=== PATIENT | female | born 1965 | race Caucasian/White ===

== ENCOUNTER 2017-10-25 15:15 | Emergency (ER) | payer BC ==
[~2017-10-25] VITALS: Ht 170.2 cm; Wt 113.4 kg
[~2017-10-25 15:15] MED LIST: ALPR.25 PO; BUPR150ERA PO; Budeprion Xl300 MG; CLON1; DOCU100 PO; Dicyclomine HCl10 MG PO; ESTR2 PO; LAMO25; LEVSOD50 PO; LIOT5; LISI5; Lamictal150 MG PO; Mobic7.5 MG PO; NORT25 PO; Norco 5-325 Ta1 EACH PO; Omeprazole20 M1 PO; Prinivil10 MG PO; QUET300 PO; Seroquel Xr400 MG; VICODIN 5-3001 EACH PO; Venlafaxine HC225 MG PO; ZOLP10 PO; Zofran Odt4 MG SL
[2017-10-25 15:37] LABS: BASOPHILS ABSOLUTE AUTO 0.12 K/mm3 (0.00-0.23); BASOPHILS PERCENT AUTO 2 % (0-2); EOSINOPHILS ABSOLUTE AUTO 0.25 K/mm3 (0.00-0.68); EOSINOPHILS PERCENT AUTO 3 % (0-6); Hematocrit 39.6 % (33.0-51.0); Hemoglobin 11.8 g/dL (11.5-16.0); IMMATURE GRAN ABSOLUTE AUTO 0.03 K/mm3 (0.00-0.10); IMMATURE GRAN PERCENT AUTO 0 % (0-1); LYMPHOCYTES ABSOLUTE AUTO 2.52 K/mm3 (0.84-5.20); LYMPHOCYTES PERCENT AUTO 31 % (21-46); MONOCYTES ABSOLUTE AUTO 0.54 K/mm3 (0.16-1.47); MONOCYTES PERCENT AUTO 7 % (4-13); Mean Corpuscular HGB 24.1 pg (26.0-34.0); Mean Corpuscular HGB Conc 29.8 g/dL (31.5-36.5); Mean Corpuscular Volume 81 fL (80-100); Mean Platelet Volume 8.7 fL (9.1-12.4); NEUTROPHILS ABSOLUTE AUTO 4.74 K/mm3 (1.96-9.15); NEUTROPHILS PERCENT AUTO 58 % (41-73); Platelet Count 396 K/mm3 (150-400); RDW Coefficient Variation 16.9 % (11.7-14.2); RDW Standard Deviation 49.9 fL (35.1-46.3); Red Blood Cell Count 4.89 M/mm3 (3.80-5.20)
[2017-10-25] MEDS ORDERED: PREG50 PO (16:15)
[2017-10-25] MEDS ORDERED: LEVSOD50 PO (16:15)
[2017-10-25] MEDS ORDERED: Venlafaxine HC225 MG PO (16:16)
[2017-10-25] MEDS ORDERED: ZOLP10 PO (16:16)
[2017-10-25] MEDS ORDERED: LOSA50 PO (16:17)
[2017-10-25] MEDS ORDERED: Lamictal150 MG PO (16:17)
[2017-10-25] MEDS ORDERED: QUET300 PO (16:17)
[2017-10-25] MEDS ORDERED: LORA.5 PO (16:18)
[2017-10-25 20:02] LABS: Alanine Aminotransfer (ALT/SGP 20 U/L (12-78); Albumin, Blood 3.4 g/dL (3.4-5.0); Albumin/Globulin Ratio 1.2 (0.8-1.8); Alk Phos 130 U/L (50-136); Anion Gap 8 mmol/L (6-16); Aspartate Aminotrans (AST/SGOT 18 U/L (12-37); Bilirubin, Total 0.3 mg/dL (0.1-1.0); Blood Urea Nitrogen 16 mg/dL (8-24); Bun/Creatinine Ratio 17.4 (12.0-20.0); CO2, Blood 26 mmol/L (21-32); Calcium, Blood 8.8 mg/dL (8.5-10.1); Chloride, Blood 107 mmol/L (98-108); Creatinine, Blood 0.92 mg/dL (0.40-1.00); Globulin, Blood 2.8 g/dL (2.2-4.0); Glomerular Filtration Rate >60 (60-); Glucose, Blood 85 mg/dL (70-99); Potassium, Blood 4.3 mmol/L (3.5-5.5); Sodium, Blood 141 mmol/L (136-145); Total Protein, Blood 6.2 g/dL (6.4-8.2)
[2017-11-04] MEDS ORDERED: LIOT5 PO (11:48)
[2017-11-04] MEDS ORDERED: SAXENDA3 MG/0.5 M (11:49)
[2017-11-04] MEDS ORDERED: Zanaflex4 M1 (11:49)
== END 2017-10-25 20:39 | disposition home or self-care (01) ==
LOC: ER 15:15
PROVIDERS: Internal Medicine
DX: T50.991A Poisoning by other drugs, medicaments and biological substances, accidental (unintentional), initial encounter (principal); R10.9 Unspecified abdominal pain; I10 Essential (primary) hypertension; E03.9 Hypothyroidism, unspecified; F41.8 Other specified anxiety disorders; Z79.899 Other long term (current) drug therapy
CPT/HCPCS: 36415; 80053; 83690; 85025; 96361; 96374; 96375; 99284; J1885; J2405; J2550; J7030

== ENCOUNTER 2018-01-06 08:50 | Day surgery (SDC) | payer BC ==
[~2018-01-06] VITALS: Ht 162.6 cm; Wt 105.0 kg
[~2018-01-06 08:50] MED LIST changes: +LORA.5 PO; +LOSA50 PO; +PREG50 PO; +SAXENDA3 MG/0.5 M; +Zanaflex4 M1
== END 2018-01-06 12:02 | disposition home or self-care (01) ==
LOC: ORSCSDS 08:50
PROVIDERS: Orthopaedic Surgery
PROC: 01N54ZZ Release Median Nerve, Percutaneous Endoscopic Approach (ICD-10-PCS; principal; 2018-01-06 10:30)
DX: G56.02 Carpal tunnel syndrome, left upper limb (principal); I10 Essential (primary) hypertension; G47.33 Obstructive sleep apnea (adult) (pediatric); E66.01 Morbid (severe) obesity due to excess calories; Z68.39 Body mass index [BMI] 39.0-39.9, adult; F33.9 Major depressive disorder, recurrent, unspecified; Z79.899 Other long term (current) drug therapy
CPT/HCPCS: J0171; J0690; J2250; J3010; J7120

== ENCOUNTER → 2018-02-21 | Outpatient (CLI) | payer BC | END | disposition home or self-care (01) | LOC: LAB SHORT 17:17 → LAB 17:17 | PROVIDERS: Nurse Practitioner Women's Health | DX: Z12.72 Encounter for screening for malignant neoplasm of vagina (principal); Z91.89 Other specified personal risk factors, not elsewhere classified | CPT/HCPCS: 87624; G0123 ==

== ENCOUNTER 2018-03-12 17:58 | Emergency (ER) | payer BC ==
[~2018-03-12] VITALS: Ht 162.6 cm; Wt 103.0 kg
[~2018-03-12 17:58] MED LIST changes: +LIOT5 PO
[2018-03-12 18:31] LABS: BASOPHILS ABSOLUTE AUTO 0.13 K/mm3 (0.00-0.23); BASOPHILS PERCENT AUTO 1 % (0-2); EOSINOPHILS ABSOLUTE AUTO 0.18 K/mm3 (0.00-0.68); EOSINOPHILS PERCENT AUTO 2 % (0-6); Hematocrit 38.6 % (33.0-51.0); IMMATURE GRAN ABSOLUTE AUTO 0.04 K/mm3 (0.00-0.10); IMMATURE GRAN PERCENT AUTO 0 % (0-1); LYMPHOCYTES ABSOLUTE AUTO 3.17 K/mm3 (0.84-5.20); LYMPHOCYTES PERCENT AUTO 33 % (21-46); MONOCYTES ABSOLUTE AUTO 0.64 K/mm3 (0.16-1.47); MONOCYTES PERCENT AUTO 7 % (4-13); Mean Corpuscular HGB 26.3 pg (26.0-34.0); Mean Corpuscular HGB Conc 31.1 g/dL (31.5-36.5); Mean Corpuscular Volume 85 fL (80-100); Mean Platelet Volume 8.5 fL (9.1-12.4); NEUTROPHILS ABSOLUTE AUTO 5.43 K/mm3 (1.96-9.15); NEUTROPHILS PERCENT AUTO 57 % (41-73); Platelet Count 379 K/mm3 (150-400); RDW Coefficient Variation 15.9 % (11.7-14.2); RDW Standard Deviation 48.3 fL (35.1-46.3); Red Blood Cell Count 4.57 M/mm3 (3.80-5.20); White Blood Cell Count 9.59 K/mm3 (4.00-11.30)
[2018-03-12] MEDS ORDERED: PREG50 PO (18:37)
[2018-03-12] MEDS ORDERED: GABA100 PO (18:39)
[2018-03-12] MEDS ORDERED: ESTRADIOL1 EACH TD (18:40)
[2018-03-12 18:46] LABS: Anion Gap 10 mmol/L (6-16); Blood Urea Nitrogen 9 mg/dL (8-24); Bun/Creatinine Ratio 9.5 (12.0-20.0); CO2, Blood 27 mmol/L (21-32); Calcium, Blood 8.6 mg/dL (8.5-10.1); Chloride, Blood 108 mmol/L (98-108); Creatinine, Blood 0.94 mg/dL (0.40-1.00); Glomerular Filtration Rate >60 (60-); Glucose, Blood 131 mg/dL (70-99); Potassium, Blood 3.5 mmol/L (3.5-5.5); Sodium, Blood 145 mmol/L (136-145)
== END 2018-03-12 19:30 | disposition home or self-care (01) ==
LOC: ER 17:58
PROVIDERS: Emergency Medicine
DX: R11.2 Nausea with vomiting, unspecified (principal); R19.7 Diarrhea, unspecified; R23.3 Spontaneous ecchymoses; I10 Essential (primary) hypertension; E03.9 Hypothyroidism, unspecified; F41.9 Anxiety disorder, unspecified; F32.9 Major depressive disorder, single episode, unspecified; Z79.899 Other long term (current) drug therapy
CPT/HCPCS: 36415; 80048; 85025; 96361; 96374; 96375; 99283-25; J0780; J1200; J7030

== ENCOUNTER 2018-12-01 20:32 | Emergency (ER) | payer BC ==
[~2018-12-01] VITALS: Ht 162.6 cm; Wt 103.4 kg
[~2018-12-01 20:32] MED LIST changes: +ESTRADIOL1 EACH TD; +GABA100 PO
[2018-12-01] MEDS ORDERED: Cheratussin AC118 ML PO (22:15)
[2018-12-01] MEDS ORDERED: Prednisone20 MG PO (22:15)
[2018-12-04] MEDS ORDERED: BENZ100A PO (21:26)
== END 2018-12-01 22:25 | disposition home or self-care (01) ==
LOC: ER 20:32
DX: J40 Bronchitis, not specified as acute or chronic (principal); I10 Essential (primary) hypertension; E03.9 Hypothyroidism, unspecified; F31.9 Bipolar disorder, unspecified; F41.9 Anxiety disorder, unspecified; Z79.899 Other long term (current) drug therapy
CPT/HCPCS: 71046; 99283-25; J7512

== ENCOUNTER 2018-12-29 07:37 | Day surgery (SDC) | payer BC ==
[~2018-12-29] VITALS: Ht 162.6 cm; Wt 102.5 kg
[~2018-12-29 07:37] MED LIST changes: +BENZ100A PO; +COMPAZINE10 MG PO; +Cheratussin AC118 ML PO; +Esgic Tablet1 EACH PO; +LORA1 PO; +METCAR500 PO; +NARCAN4 MG; +Norco 10-325 T1 EACH PO; +PROGESTERONE100 MG PO; +Prednisone20 MG PO; +TIZANIDINE HCL4 MG PO
== END 2018-12-29 10:58 | disposition home or self-care (01) ==
LOC: ORSCSDS 07:37
PROVIDERS: Orthopaedic Surgery
PROC: 0SBC4ZZ Excision of Right Knee Joint, Percutaneous Endoscopic Approach (ICD-10-PCS; principal; 2018-12-29 08:45)
DX: M23.221 Derangement of posterior horn of medial meniscus due to old tear or injury, right knee (principal); M23.251 Derangement of posterior horn of lateral meniscus due to old tear or injury, right knee; M94.261 Chondromalacia, right knee; I10 Essential (primary) hypertension; G47.33 Obstructive sleep apnea (adult) (pediatric); E03.9 Hypothyroidism, unspecified; F31.9 Bipolar disorder, unspecified; M79.7 Fibromyalgia; E66.01 Morbid (severe) obesity due to excess calories; Z68.38 Body mass index [BMI] 38.0-38.9, adult; Z79.899 Other long term (current) drug therapy
CPT/HCPCS: J0171; J0690; J1100; J1885; J2250; J2405; J2704; J3010; J7120

== ENCOUNTER → 2019-03-20 | Outpatient (CLI) | payer BC ==
[2019-03-22 14:07] LABS: HPV 16 Negative (Negative); HPV 18 Negative (Negative); HPV OTHER HR TYPES Negative (Negative)
== END | disposition home or self-care (01) ==
LOC: LAB 18:13 → LAB SHORT 18:13
PROVIDERS: Nurse Practitioner Women's Health
DX: Z12.72 Encounter for screening for malignant neoplasm of vagina (principal); Z91.89 Other specified personal risk factors, not elsewhere classified
CPT/HCPCS: 87624; G0123

== ENCOUNTER 2019-05-15 13:08 | Emergency (ER) | payer BC ==
[~2019-05-15] VITALS: Ht 162.6 cm; Wt 104.3 kg
== END 2019-05-15 15:03 | disposition home or self-care (01) ==
LOC: ER 13:08
DX: G43.909 Migraine, unspecified, not intractable, without status migrainosus (principal); Z79.899 Other long term (current) drug therapy; I10 Essential (primary) hypertension; E03.9 Hypothyroidism, unspecified; F31.9 Bipolar disorder, unspecified
CPT/HCPCS: 96361; 96374; 96375; 99283-25; J0780; J1100; J1200; J1885; J7030

== ENCOUNTER 2019-12-12 20:54 | Emergency (ER) | payer BC ==
[~2019-12-12] VITALS: Ht 162.6 cm; Wt 104.8 kg
[~2019-12-12 20:54] MED LIST changes: +ACETAMINOPHEN500 MG PO; +OMEP20ER PO
[2019-12-12 21:17] LABS: Source, Urine Clean Catch
[2019-12-12 21:20] LABS: Appearance, Urine Bloody (Clear); Bilirubin, Urine Neg (Neg); Blood, Urine 5+ (Neg); Color, Urine Red (P-Yellow); Glucose Qualitative, Urine Neg (Neg); Ketones, Urine 2+ (Neg); Leukocyte Esterase, Urine 3+ (Neg); Nitrite, Urine Neg (Neg); Protein, Urine 3+ (Neg); Urobilinogen, Urine NORM (Normal); pH, Urine 6.5 (5.0-8.0)
[2019-12-12 21:26] LABS: BASOPHILS ABSOLUTE AUTO 0.16 K/mm3 (0.00-0.23); BASOPHILS PERCENT AUTO 1 % (0-2); EOSINOPHILS ABSOLUTE AUTO 0.24 K/mm3 (0.00-0.68); EOSINOPHILS PERCENT AUTO 2 % (0-6); Hematocrit 40.4 % (33.0-51.0); Hemoglobin 12.3 g/dL (11.5-16.0); IMMATURE GRAN ABSOLUTE AUTO 0.06 K/mm3 (0.00-0.10); IMMATURE GRAN PERCENT AUTO 1 % (0-1); LYMPHOCYTES ABSOLUTE AUTO 3.06 K/mm3 (0.84-5.20); LYMPHOCYTES PERCENT AUTO 25 % (21-46); MONOCYTES ABSOLUTE AUTO 0.74 K/mm3 (0.16-1.47); MONOCYTES PERCENT AUTO 6 % (4-13); Mean Corpuscular HGB 26.5 pg (26.0-34.0); Mean Corpuscular HGB Conc 30.4 g/dL (31.5-36.5); Mean Corpuscular Volume 87 fL (80-100); Mean Platelet Volume 8.7 fL (9.1-12.4); NEUTROPHILS ABSOLUTE AUTO 8.12 K/mm3 (1.96-9.15); NEUTROPHILS PERCENT AUTO 66 % (41-73); Platelet Count 428 K/mm3 (150-400); RDW Standard Deviation 47.8 fL (35.1-46.3); Red Blood Cell Count 4.65 M/mm3 (3.80-5.20); White Blood Cell Count 12.38 K/mm3 (4.00-11.30)
[2019-12-12 21:34] LABS: Bacteria Many /hpf; Red Blood Cells, Urine TNTC /hpf (0-2); Squamous Epithelial Cells Not Seen /hpf (Few)
[2019-12-12 21:40] LABS: Anion Gap 7 mmol/L (6-16); Blood Urea Nitrogen 14 mg/dL (8-24); Bun/Creatinine Ratio 15.7 (12.0-20.0); CO2, Blood 26 mmol/L (21-32); Calcium, Blood 8.4 mg/dL (8.5-10.1); Chloride, Blood 108 mmol/L (98-108); Creatinine, Blood 0.89 mg/dL (0.40-1.00); Glomerular Filtration Rate >60 (60-); Glucose, Blood 127 mg/dL (70-99); Potassium, Blood 3.8 mmol/L (3.5-5.5); Sodium, Blood 141 mmol/L (136-145)
[2019-12-12] MEDS ORDERED: CEPH500 PO (22:01)
[2019-12-12] MEDS ORDERED: Roxicodone5 MG PO (22:01)
[2019-12-12] MEDS ORDERED: Pyridium200 MG PO (22:01)
== END 2019-12-12 22:23 | disposition home or self-care (01) ==
LOC: ER 20:54
PROVIDERS: Emergency Medicine
DX: N30.91 Cystitis, unspecified with hematuria (principal); I10 Essential (primary) hypertension; E03.9 Hypothyroidism, unspecified; F41.9 Anxiety disorder, unspecified; F32.9 Major depressive disorder, single episode, unspecified; Z79.899 Other long term (current) drug therapy
CPT/HCPCS: 36415; 74176; 80048; 81001; 85025; 87077; 87086; 87186; 96374; 99284-25; A9270; A9270-GY; J1885

== ENCOUNTER 2019-12-19 17:41 | Emergency (ER) | payer BC ==
[~2019-12-19] VITALS: Ht 162.6 cm; Wt 104.8 kg
[~2019-12-19 17:41] MED LIST changes: +CEPH500 PO; +Pyridium200 MG PO; +Roxicodone5 MG PO
[2019-12-19 19:33] LABS: Source, Urine Clean Catch
[2019-12-19 19:37] LABS: Bilirubin, Urine Neg (Neg); Blood, Urine 1+ (Neg); Glucose Qualitative, Urine Neg (Neg); Ketones, Urine Neg (Neg); Leukocyte Esterase, Urine Neg (Neg); Nitrite, Urine Neg (Neg); Protein, Urine Neg (Neg); Urobilinogen, Urine NORM (Normal)
[2019-12-19 19:38] LABS: BASOPHILS ABSOLUTE AUTO 0.11 K/mm3 (0.00-0.23); BASOPHILS PERCENT AUTO 1 % (0-2); EOSINOPHILS ABSOLUTE AUTO 0.18 K/mm3 (0.00-0.68); EOSINOPHILS PERCENT AUTO 2 % (0-6); Hematocrit 40.3 % (33.0-51.0); Hemoglobin 12.4 g/dL (11.5-16.0); IMMATURE GRAN ABSOLUTE AUTO 0.02 K/mm3 (0.00-0.10); IMMATURE GRAN PERCENT AUTO 0 % (0-1); LYMPHOCYTES ABSOLUTE AUTO 2.46 K/mm3 (0.84-5.20); LYMPHOCYTES PERCENT AUTO 31 % (21-46); MONOCYTES ABSOLUTE AUTO 0.68 K/mm3 (0.16-1.47); MONOCYTES PERCENT AUTO 9 % (4-13); Mean Corpuscular HGB 26.4 pg (26.0-34.0); Mean Corpuscular HGB Conc 30.8 g/dL (31.5-36.5); Mean Corpuscular Volume 86 fL (80-100); Mean Platelet Volume 8.6 fL (9.1-12.4); NEUTROPHILS ABSOLUTE AUTO 4.45 K/mm3 (1.96-9.15); NEUTROPHILS PERCENT AUTO 56 % (41-73); Platelet Count 344 K/mm3 (150-400); RDW Coefficient Variation 14.6 % (11.7-14.2); RDW Standard Deviation 46.3 fL (35.1-46.3)
[2019-12-19 19:43] LABS: Appearance, Urine Clear (Clear); Color, Urine Yellow (P-Yellow)
[2019-12-19 19:44] LABS: Bacteria Few /hpf; Other Crystals Few /hpf; Red Blood Cells, Urine 0-2 /hpf (0-2); Squamous Epithelial Cells Mod /hpf (Few); White Blood Cells, Urine 0-2 /hpf (0-5)
[2019-12-19 20:03] LABS: Alanine Aminotransfer (ALT/SGP 17 U/L (12-78); Albumin, Blood 3.4 g/dL (3.4-5.0); Albumin/Globulin Ratio 0.9 (0.8-1.8); Alk Phos 133 U/L (50-136); Anion Gap 7 mmol/L (6-16); Aspartate Aminotrans (AST/SGOT 16 U/L (12-37); Bilirubin, Total 0.4 mg/dL (0.1-1.0); Blood Urea Nitrogen 12 mg/dL (8-24); Bun/Creatinine Ratio 12.3 (12.0-20.0); CO2, Blood 26 mmol/L (21-32); Calcium, Blood 8.6 mg/dL (8.5-10.1); Chloride, Blood 104 mmol/L (98-108); Creatinine, Blood 0.98 mg/dL (0.40-1.00); Globulin, Blood 3.8 g/dL (2.2-4.0); Glomerular Filtration Rate >60 (60-); Glucose, Blood 94 mg/dL (70-99); Sodium, Blood 137 mmol/L (136-145); Total Protein, Blood 7.2 g/dL (6.4-8.2)
[2019-12-19] MEDS ORDERED: KETO10 PO (20:26)
== END 2019-12-19 21:13 | disposition home or self-care (01) ==
LOC: ER 17:41
PROVIDERS: Emergency Medicine
DX: R10.9 Unspecified abdominal pain (principal); Z79.899 Other long term (current) drug therapy; I10 Essential (primary) hypertension; E03.9 Hypothyroidism, unspecified; F31.9 Bipolar disorder, unspecified; F41.9 Anxiety disorder, unspecified
CPT/HCPCS: 36415; 71045; 80053; 81001; 83690; 85025; 96374; 96375; 99284-25; J1885; J3010

== ENCOUNTER 2020-08-05 09:31 | Day surgery (SDC) | payer BC ==
[~2020-08-05] VITALS: Ht 162.6 cm; Wt 104.8 kg
[~2020-08-05 09:31] MED LIST changes: +Ambien10 MG PO; +Ativan1 MG PO; +BUPR150ER PO; +Bentyl20 MG; +Bentyl20 MG PO; +CLON.1 PO; +EUTHYROX50 MCG PO; +FIORINAL 50-321 EACH PO; +FLUOXETINE HCL60 MG PO; +HYDACE10B; +KETO10 PO; +LIOT50 PO; +QUETIAPINE FUM400 MG PO; +SUBVENITE150 MG PO
--- NOTE | 2020-08-05 09:41 | NUR ---
History, Chart, Medications and Allergies reviewed before start of procedure. Patient confirms NPO status and agrees with scheduled surgery.
--- NOTE | 2020-08-05 10:00 | NUR ---
Lungs clear T/O to Auscultation. Knee high christina hose and calf PAS applied to LLE. Patient states she did chlorhexidine showers x4 days prior to coming to hospital today.
[2020-08-05] MEDS ORDERED: MUPIROCIN22 G1 TOP (10:05)
--- NOTE | 2020-08-05 13:55 | NUR ---
ARRIVED FROM PACU AT 1300 PT ARRIVED FROM PACU FOR R TKA. AOX4. PT REPORTS PAIN 02/15. 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 PT DENIES CP AND SOB. SHE HAD A SPINAL, UNABLE TO WIGGLE TOES WHEN SHE FIRST CAME IN. BUT IT HAS IMPROVED AFTER AN HOUR, ABLE TO WIGGLE TOES AND STARTED TO FEEL TINGLING SENSATION ON BLE. DERMATONES AT L3. PT TOLERATING CLEAR DIET DENIES N/V. R KNEE W/ AQUACEL DRESSING, CDI. POLAR PACK AND DI HOSE IN PLACED. CALLED AND LMOM TO FOR AN UPDATE PER PT REQUEST. PT RESTING COMFRTBLE IN ROOM. CALL LIGHT W/IN REACH.
--- NOTE | 2020-08-05 20:02 | NUR ---
SHIFT SUMMARY PT ABLE TO WORK WITH THERAPY TODAY. AMBULATION W/ 1 ASSIST, FWW AND GB. TOLERATING IT WELL, PAIN INCREASED AFTER THE THERAPY. PAIN MANAGED W/ TORADOL, TYLENOL AND OXY. PT TOLERATING REG DIET BUT HAS DECREASE APPETITE. DENIES N/V. R KNEE WITH AQUACEL DRESSING CDI. PT DENIES NUMBNESS AND TINGLING SENSATION. POLAR PACK, PAS AND DI HOSE IN PLACED. CALL LIGHT W/IN REACH. CPAP MACHINE ON BEDSIDE.
[2020-08-06 04:02] LABS: BASOPHILS ABSOLUTE AUTO 0.03 K/mm3 (0.00-0.23); BASOPHILS PERCENT AUTO 0 % (0-2); EOSINOPHILS ABSOLUTE AUTO 0.01 K/mm3 (0.00-0.68); EOSINOPHILS PERCENT AUTO 0 % (0-6); Hematocrit 30.1 % (33.0-51.0); Hemoglobin 9.3 g/dL (11.5-16.0); IMMATURE GRAN ABSOLUTE AUTO 0.09 K/mm3 (0.00-0.10); IMMATURE GRAN PERCENT AUTO 1 % (0-1); LYMPHOCYTES ABSOLUTE AUTO 1.26 K/mm3 (0.84-5.20); LYMPHOCYTES PERCENT AUTO 9 % (21-46); MONOCYTES ABSOLUTE AUTO 0.74 K/mm3 (0.16-1.47); MONOCYTES PERCENT AUTO 5 % (4-13); Mean Corpuscular HGB 26.2 pg (26.0-34.0); Mean Corpuscular HGB Conc 30.9 g/dL (31.5-36.5); Mean Corpuscular Volume 85 fL (80-100); Mean Platelet Volume 8.6 fL (9.1-12.4); NEUTROPHILS PERCENT AUTO 85 % (41-73); Platelet Count 366 K/mm3 (150-400); RDW Coefficient Variation 14.8 % (11.7-14.2); RDW Standard Deviation 45.9 fL (35.1-46.3); Red Blood Cell Count 3.55 M/mm3 (3.80-5.20); White Blood Cell Count 14.43 K/mm3 (4.00-11.30)
[2020-08-06 04:24] LABS: Bun/Creatinine Ratio 16.3 (12.0-20.0); Calcium, Blood 8.4 mg/dL (8.5-10.1); Creatinine, Blood 1.04 mg/dL (0.40-1.00); Magnesium, Blood 2.3 mg/dL (1.6-2.4); Potassium, Blood 4.3 mmol/L (3.5-5.5)
--- NOTE | 2020-08-06 06:55 | NUR ---
SHIFT SUMMARY: KRISTIE IS A&OX4. BP DECREASED THIS AM, BUT TRENDING BACK UP. SHE DID REPORT SOME DIZZINESS WITH AMBULATION THIS MORNING. Curious Sense C/D&I. DI HOSE, PAS AND POLAR PACK IN PLACE. IV PATENT. SHE BROUGHT HER CPAP FROM HOME AND USED IT OVERNIGHT. O2 SATS MAINTAINING ABOVE 93% ORA. SHE IS A ONE PERSON ASSIST TO THE BATHROOM WITH THE GAIT BELT AND FWW. SHE IS LYING IN BED WITH HER CALL LIGHT IN REACH. WILL REPORT TO DAY SHIFT RN.
[2020-08-06] MEDS ORDERED: OXAYDO5 M1 PO (08:33)
[2020-08-06] MEDS ORDERED: ASPI81CH PO (08:33)
[2020-08-06] MEDS ORDERED: ACET500 PO (08:33)
--- NOTE | 2020-08-06 10:30 | NUR ---
DISCHARGE SUMMARY PT A&OX4, VSS, LEFT FLOOR VIA WC WITH MACHINIST HELPER TO GO HOME WITH , WITH ALL PERSONAL POSSESSIONS INCLUDING DC PACKET, 2 AQUACEL, POLAR CELESTINO, AND 1 NARC SCRIPT. DC INSTRUCTIONS PROVIDED. PT REP UNDERSTANDING THOSE INSTRUCTIONS INCLUDING FU WITH SURGEON, CHANGE DRESSINGS, OK TO SHOWER, NO TUB/JACUZZI, SHORT FREQUENT AMBULATION W/FWW, AND GB FOR SAFETY, POLAR CELESTINO ON AT REST WITH LEGS ELEVATED, PAIN MANAGEMENT. IV DC'D.
== END 2020-08-06 10:25 | disposition home or self-care (01) ==
LOC: ORSCMMR 09:31 → ORD 11:15 → ORSCMMR 11:15 → SURS 12:57 → ORSCMMR 12:57 → SURS 08-06 10:25 → ORSCMMR 08-06 10:25
PROVIDERS: Orthopaedic Surgery
PROC: 0SRC0JA Replacement of Right Knee Joint with Synthetic Substitute, Uncemented, Open Approach (ICD-10-PCS; principal; 2020-08-05 11:15)
PROC: 8E0Y0CZ Robotic Assisted Procedure of Lower Extremity, Open Approach (ICD-10-PCS; principal; 2020-08-05 11:15)
DX: M17.11 Unilateral primary osteoarthritis, right knee (principal); I10 Essential (primary) hypertension; G47.33 Obstructive sleep apnea (adult) (pediatric); K21.9 Gastro-esophageal reflux disease without esophagitis; E03.9 Hypothyroidism, unspecified; F31.9 Bipolar disorder, unspecified; M79.7 Fibromyalgia; E66.01 Morbid (severe) obesity due to excess calories; Z68.39 Body mass index [BMI] 39.0-39.9, adult; Z79.899 Other long term (current) drug therapy
CPT/HCPCS: 27447; S2900; 36415; 73560-RT; 80048; 83735; 85025; 88300; 94762; 97110; 97116; 97161; 97530; A9270; A9270-GY; C1776; J0171; J0690; J0735; J1100; J1170; J1885; J2250; J2370; J2405; J2704; J2795; J3010; J7120

== ENCOUNTER 2021-11-04 10:46 | Day surgery (SDC) | payer BC ==
[~2021-11-04] VITALS: Ht 162.6 cm; Wt 110.5 kg
[~2021-11-04 10:46] MED LIST changes: +ACET500 PO; +ASPI81CH PO; +MUPIROCIN22 G1 TOP; +OXAYDO5 M1 PO
[2021-11-04] MEDS ORDERED: Seroquel Xr400 MG PO (11:19)
== END 2021-11-04 12:35 | disposition home or self-care (01) ==
LOC: ORSCSDS 10:46
PROVIDERS: Internal Medicine Gastroenterology
PROC: 0DJ08ZZ Inspection of Upper Intestinal Tract, Via Natural or Artificial Opening Endoscopic (ICD-10-PCS; principal; 2021-11-04 12:00)
DX: Z86.018 Personal history of other benign neoplasm (principal); G47.33 Obstructive sleep apnea (adult) (pediatric); K44.9 Diaphragmatic hernia without obstruction or gangrene; I10 Essential (primary) hypertension; F31.9 Bipolar disorder, unspecified; K21.9 Gastro-esophageal reflux disease without esophagitis; Z79.899 Other long term (current) drug therapy
CPT/HCPCS: J2704; J7120

== ENCOUNTER 2023-03-25 03:19 | Inpatient (IN) | payer BC ==
[~2023-03-25] VITALS: Ht 162.6 cm; Wt 118.2 kg
[~2023-03-25 03:19] MED LIST changes: -EUTHYROX50 MCG PO; +LEVSOD75 PO; +Seroquel Xr400 MG PO
[2023-03-25] MEDS ORDERED: PROG100 PO (03:52)
[2023-03-25] MEDS ORDERED: DESVENLAFAXINE50 MG PO (03:52)
[2023-03-25] MEDS ORDERED: TELM40 PO (03:52)
[2023-03-25 03:53] LABS: BASOPHILS ABSOLUTE AUTO 0.12 K/mm3 (0.00-0.23); BASOPHILS PERCENT AUTO 1 % (0-2); EOSINOPHILS ABSOLUTE AUTO 0.02 K/mm3 (0.00-0.68); EOSINOPHILS PERCENT AUTO 0 % (0-6); Hematocrit 44.4 % (33.0-51.0); Hemoglobin 14.8 g/dL (11.5-16.0); IMMATURE GRAN ABSOLUTE AUTO 0.07 K/mm3 (0.00-0.10); IMMATURE GRAN PERCENT AUTO 1 % (0-1); LYMPHOCYTES ABSOLUTE AUTO 1.49 K/mm3 (0.84-5.20); LYMPHOCYTES PERCENT AUTO 13 % (21-46); MONOCYTES PERCENT AUTO 5 % (4-13); Mean Corpuscular HGB 29.1 pg (26.0-34.0); Mean Corpuscular HGB Conc 33.3 g/dL (31.5-36.5); Mean Corpuscular Volume 87 fL (80-100); Mean Platelet Volume 8.7 fL (9.1-12.4); NEUTROPHILS ABSOLUTE AUTO 8.97 K/mm3 (1.96-9.15); NEUTROPHILS PERCENT AUTO 80 % (41-73); Platelet Count 390 K/mm3 (150-400); RDW Coefficient Variation 13.9 % (11.7-14.2); RDW Standard Deviation 44.7 fL (35.1-46.3); Red Blood Cell Count 5.09 M/mm3 (3.80-5.20); White Blood Cell Count 11.17 K/mm3 (4.00-11.30)
[2023-03-25] MEDS ORDERED: BUTALB-ACETAMI1 EAC7 PO (03:53)
[2023-03-25 04:11] LABS: Albumin, Blood 4.6 g/dL (3.4-5.0); Albumin/Globulin Ratio 1.2 (0.8-1.8); Bilirubin, Total 0.5 mg/dL (0.1-1.0); Bun/Creatinine Ratio 13.9 (12.0-20.0); Calcium, Blood 9.9 mg/dL (8.5-10.1); Creatinine, Blood 1.01 mg/dL (0.40-1.00); Globulin, Blood 3.8 g/dL (2.2-4.0); Potassium, Blood 4.4 mmol/L (3.5-5.5); Total Protein, Blood 8.4 g/dL (6.4-8.2)
[2023-03-25 15:59] VITALS: BP 151/88
--- NOTE | 2023-03-25 16:37 | NUR ---
NURSE NOTE NG TUBE REMOVAL: NG TUBE REMOVED AT 16:30. PROCEDURE EXPLAINED TO PATIENT. NG TUBE REMOVED WITH OUT DIFFICULTY AND PATIENT TOLERATED WELL. GASTRIC CONTENT AMOUNT DOCUMENTED IN I&Os.
[2023-03-25] MEDS ORDERED: Ativan1 MG PO (16:50)
[2023-03-25] MEDS ORDERED: CELE100 PO (16:51)
--- NOTE | 2023-03-25 17:44 | NUR ---
SHIFT SUMMARY: NO ACUTE EVENTS. C/O EPIGASTRIC PAIN, MAMAGED WITH IV FENTANYL. HAVING INTERMITTENT NAUSEA, MANAGED WITH ZOFRAN. COMPLETED SB FOLLOW THRU X RAY SERIES, IS NOW HAVING DIARRHEA. NGT REMOVED PER DR. PARTIDA. GETTING UP TO BR WITH SBA, WILL USE BSC AT NIGHT. IS NPO, TOLERATING ICE CHIPS. POSSIBLE D/C HOME TOMORROW.
[2023-03-25 19:16] VITALS: BP 177/107
[2023-03-25 22:06] VITALS: BP 148/88
[2023-03-26 03:57] VITALS: BP 135/86
--- NOTE | 2023-03-26 04:45 | NUR ---
SHIFT SUMMARY PT IS A&O4, INDEPENDENT TO THE BSC, PT HAS HAD SEVERAL EPISODES OF DIARRHEA THIS SHIFT, PRN PAIN MEDICATION GIVEN PER MAR, RA, IGINITION SOURCES ASSESSED, CONTINUE POC
[2023-03-26 06:09] LABS: BASOPHILS ABSOLUTE AUTO 0.11 K/mm3 (0.00-0.23); BASOPHILS PERCENT AUTO 1 % (0-2); EOSINOPHILS ABSOLUTE AUTO 0.05 K/mm3 (0.00-0.68); EOSINOPHILS PERCENT AUTO 0 % (0-6); Hematocrit 43.3 % (33.0-51.0); IMMATURE GRAN ABSOLUTE AUTO 0.04 K/mm3 (0.00-0.10); IMMATURE GRAN PERCENT AUTO 0 % (0-1); LYMPHOCYTES ABSOLUTE AUTO 2.24 K/mm3 (0.84-5.20); LYMPHOCYTES PERCENT AUTO 20 % (21-46); MONOCYTES ABSOLUTE AUTO 0.87 K/mm3 (0.16-1.47); MONOCYTES PERCENT AUTO 8 % (4-13); Mean Corpuscular HGB 28.9 pg (26.0-34.0); Mean Corpuscular HGB Conc 32.3 g/dL (31.5-36.5); Mean Corpuscular Volume 89 fL (80-100); Mean Platelet Volume 8.6 fL (9.1-12.4); NEUTROPHILS ABSOLUTE AUTO 7.81 K/mm3 (1.96-9.15); NEUTROPHILS PERCENT AUTO 70 % (41-73); Platelet Count 350 K/mm3 (150-400); RDW Coefficient Variation 14.3 % (11.7-14.2); RDW Standard Deviation 46.3 fL (35.1-46.3); Red Blood Cell Count 4.85 M/mm3 (3.80-5.20); White Blood Cell Count 11.12 K/mm3 (4.00-11.30)
[2023-03-26 06:35] LABS: Albumin, Blood 4.5 g/dL (3.4-5.0); Albumin/Globulin Ratio 1.3 (0.8-1.8); Bilirubin, Total 0.4 mg/dL (0.1-1.0); Bun/Creatinine Ratio 19.7 (12.0-20.0); Calcium, Blood 9.2 mg/dL (8.5-10.1); Creatinine, Blood 0.96 mg/dL (0.40-1.00); Globulin, Blood 3.5 g/dL (2.2-4.0); Potassium, Blood 3.6 mmol/L (3.5-5.5)
[2023-03-26 08:10] VITALS: BP 158/77
[2023-03-26] MEDS ORDERED: ONDA4ODT MM (10:59)
--- NOTE | 2023-03-26 11:17 | NUR ---
PATIENT DISCHARGED TO HOME ACCOMPANIED BY . IV SALINE LOCK AND TELEMETRY REMOVED WITHOUT INCIDENT. VERBALIZED UNDERSTANDING OF D/C INSTRUCTIONS. OFF UNIT VIA W/C AT 1115. NO PERSONAL BELONGINGS LEFT BEHIND IN ROOM.
== END 2023-03-26 11:14 | disposition home or self-care (01) | DRG 389 ==
LOC: ER 03:19 → MEDS 05:56 → ENPENDDIS 03-26 09:46 → MEDS 03-26 11:14
PROVIDERS: Emergency Medicine; ADMIT Internal Medicine
PROC: 0DH67UZ Insertion of Feeding Device into Stomach, Via Natural or Artificial Opening (ICD-10-PCS; principal; 2023-03-25)
DX: K56.609 Unspecified intestinal obstruction, unspecified as to partial versus complete obstruction (principal); Z68.41 Body mass index [BMI] 40.0-44.9, adult; I10 Essential (primary) hypertension; E03.9 Hypothyroidism, unspecified; E66.9 Obesity, unspecified; K21.9 Gastro-esophageal reflux disease without esophagitis; F31.9 Bipolar disorder, unspecified; F41.9 Anxiety disorder, unspecified; K31.7 Polyp of stomach and duodenum; Z90.89 Acquired absence of other organs; Z90.710 Acquired absence of both cervix and uterus; Z90.722 Acquired absence of ovaries, bilateral; Z79.899 Other long term (current) drug therapy; Z79.890 Hormone replacement therapy; Z90.79 Acquired absence of other genital organ(s); Z98.890 Other specified postprocedural states; Z90.49 Acquired absence of other specified parts of digestive tract; Z85.068 Personal history of other malignant neoplasm of small intestine
CPT/HCPCS: 36415; 74018; 74177; 74250; 80053; 83690; 83880; 85025; 96374-59; 96375; 96376; 99285-25; A9270; C9113; J2405; J3010; J7030; Q9967

== ENCOUNTER 2023-04-01 16:42 | Emergency (ER) | payer BC ==
[~2023-04-01] VITALS: Ht 162.6 cm; Wt 116.1 kg
[~2023-04-01 16:42] MED LIST changes: +BUTALB-ACETAMI1 EAC7 PO; +CELE100 PO; +DESVENLAFAXINE50 MG PO; +ONDA4ODT MM; +PROG100 PO; +TELM40 PO
[2023-04-01 18:03] LABS: BASOPHILS ABSOLUTE AUTO 0.11 K/mm3 (0.00-0.23); BASOPHILS PERCENT AUTO 2 % (0-2); EOSINOPHILS ABSOLUTE AUTO 0.12 K/mm3 (0.00-0.68); EOSINOPHILS PERCENT AUTO 2 % (0-6); Hematocrit 39.6 % (33.0-51.0); Hemoglobin 13.3 g/dL (11.5-16.0); IMMATURE GRAN ABSOLUTE AUTO 0.06 K/mm3 (0.00-0.10); IMMATURE GRAN PERCENT AUTO 1 % (0-1); LYMPHOCYTES ABSOLUTE AUTO 2.15 K/mm3 (0.84-5.20); LYMPHOCYTES PERCENT AUTO 32 % (21-46); MONOCYTES PERCENT AUTO 9 % (4-13); Mean Corpuscular HGB 29.3 pg (26.0-34.0); Mean Corpuscular HGB Conc 33.6 g/dL (31.5-36.5); Mean Corpuscular Volume 87 fL (80-100); Mean Platelet Volume 8.6 fL (9.1-12.4); NEUTROPHILS PERCENT AUTO 54 % (41-73); Platelet Count 286 K/mm3 (150-400); RDW Coefficient Variation 13.6 % (11.7-14.2); RDW Standard Deviation 43.6 fL (35.1-46.3); Red Blood Cell Count 4.54 M/mm3 (3.80-5.20); White Blood Cell Count 6.64 K/mm3 (4.00-11.30)
[2023-04-01 18:21] LABS: Albumin, Blood 3.9 g/dL (3.4-5.0); Albumin/Globulin Ratio 1.2 (0.8-1.8); Bilirubin, Total 0.2 mg/dL (0.1-1.0); Bun/Creatinine Ratio 12.4 (12.0-20.0); Calcium, Blood 9.2 mg/dL (8.5-10.1); Creatinine, Blood 0.89 mg/dL (0.40-1.00); Globulin, Blood 3.3 g/dL (2.2-4.0); Potassium, Blood 3.6 mmol/L (3.5-5.5); Total Protein, Blood 7.2 g/dL (6.4-8.2)
[2023-04-01 21:45] VITALS: BP 146/71
[2023-04-01] MEDS ORDERED: DOCU100 PO (21:45)
[2023-04-01] MEDS ORDERED: FAMO20 PO (21:45)
== END 2023-04-01 21:54 | disposition home or self-care (01) ==
LOC: ER 16:42
PROVIDERS: Physician Assistant
DX: R10.11 Right upper quadrant pain (principal); R10.12 Left upper quadrant pain; Z79.890 Hormone replacement therapy; Z79.899 Other long term (current) drug therapy; I10 Essential (primary) hypertension; E03.9 Hypothyroidism, unspecified
CPT/HCPCS: 74177; 80053; 83690; 85025; 99284-25; A9270; Q9967

== ENCOUNTER 2023-06-25 14:38 | Emergency (ER) | payer BC ==
[~2023-06-25] VITALS: Ht 162.6 cm; Wt 118.4 kg
[~2023-06-25 14:38] MED LIST changes: +FAMO20 PO
[2023-06-25 15:06] LABS: BASOPHILS PERCENT AUTO 2 % (0-2); EOSINOPHILS ABSOLUTE AUTO 0.06 K/mm3 (0.00-0.68); EOSINOPHILS PERCENT AUTO 1 % (0-6); Hematocrit 41.5 % (33.0-51.0); Hemoglobin 13.2 g/dL (11.5-16.0); IMMATURE GRAN ABSOLUTE AUTO 0.02 K/mm3 (0.00-0.10); IMMATURE GRAN PERCENT AUTO 0 % (0-1); LYMPHOCYTES ABSOLUTE AUTO 1.85 K/mm3 (0.84-5.20); LYMPHOCYTES PERCENT AUTO 30 % (21-46); MONOCYTES ABSOLUTE AUTO 0.46 K/mm3 (0.16-1.47); MONOCYTES PERCENT AUTO 7 % (4-13); Mean Corpuscular HGB 28.6 pg (26.0-34.0); Mean Corpuscular HGB Conc 31.8 g/dL (31.5-36.5); Mean Corpuscular Volume 90 fL (80-100); Mean Platelet Volume 8.6 fL (9.1-12.4); NEUTROPHILS ABSOLUTE AUTO 3.73 K/mm3 (1.96-9.15); NEUTROPHILS PERCENT AUTO 60 % (41-73); Platelet Count 295 K/mm3 (150-400); RDW Coefficient Variation 13.6 % (11.7-14.2); RDW Standard Deviation 45.1 fL (35.1-46.3); Red Blood Cell Count 4.61 M/mm3 (3.80-5.20); White Blood Cell Count 6.22 K/mm3 (4.00-11.30)
[2023-06-25 15:32] LABS: Albumin/Globulin Ratio 1.1 (0.8-1.8); Bilirubin, Total 0.3 mg/dL (0.1-1.0); Bun/Creatinine Ratio 11.5 (12.0-20.0); Calcium, Blood 9.3 mg/dL (8.5-10.1); Creatinine, Blood 1.13 mg/dL (0.40-1.00); Globulin, Blood 3.7 g/dL (2.2-4.0); Potassium, Blood 4.4 mmol/L (3.5-5.5); Total Protein, Blood 7.7 g/dL (6.4-8.2)
[2023-06-25 16:01] LABS: Source, Urine Clean Catch
[2023-06-25 16:08] LABS: Appearance, Urine Clear (Clear); Bilirubin, Urine Neg (Neg); Blood, Urine Neg (Neg); Glucose Qualitative, Urine Neg (Neg); Ketones, Urine Neg (Neg); Leukocyte Esterase, Urine Neg (Neg); Nitrite, Urine Neg (Neg); Protein, Urine Neg (Neg); Urobilinogen, Urine NORM (Normal)
[2023-06-25 16:28] LABS: Color, Urine Pale Yellow (P-Yellow)
[2023-06-25] MEDS ORDERED: BUTALB-ACETAMI1 EAC7 (19:26)
[2023-06-25] MEDS ORDERED: OXYC5 PO (19:53)
[2023-06-25 20:26] VITALS: BP 170/95
== END 2023-06-25 20:20 | disposition home or self-care (01) ==
LOC: ER 14:38
PROVIDERS: Student in an Organized Health Care Education/Training Program
DX: R10.9 Unspecified abdominal pain (principal); I10 Essential (primary) hypertension; E03.9 Hypothyroidism, unspecified; Z79.899 Other long term (current) drug therapy
CPT/HCPCS: 74177; 80053; 81003; 83690; 85025; 93005; 93010; 96374; 96375; 99284-25; A9270; J1170; J2405; Q9967